=== PATIENT | female | born 1970 | race Two or more races ===

== ENCOUNTER 2020-12-03 10:36 | Emergency (ER) | payer MEDICAID ==
[~2020-12-03] VITALS: Ht 149.9 cm; Wt 62.1 kg
[2020-12-03] MEDS ORDERED: PROM118S5 PO (11:02)
--- NOTE | 2020-12-03 11:09 | NUR ---
Patient discharged to home in stable condition with brisk steady gait. Written and verbal after care instructions given to patient. Patient verbalizes understanding & compliance of instructions. Stressed follow up with primary doctor or return to ER for worsening s/s.
== END 2020-12-03 11:10 | disposition home or self-care (01) ==
LOC: ER 10:36
DX: R05 Cough (principal); J45.909 Unspecified asthma, uncomplicated; Z88.6 Allergy status to analgesic agent; Z88.5 Allergy status to narcotic agent
CPT/HCPCS: 71045; A4663

== ENCOUNTER 2021-01-23 17:29 | Emergency (ER) | payer MEDICAID, OTHER ==
[~2021-01-23] VITALS: Ht 149.9 cm; Wt 65.8 kg
[~2021-01-23 17:29] MED LIST: PROM118S5 PO
[2021-01-23] MEDS ORDERED: HYDR-3980 PO (17:57)
--- NOTE | 2021-01-23 18:12 | NUR ---
Patient discharged to home in stable condition. Written and verbal after care instructions given. Patient verbalizes understanding of instructions. Stressed follow up or return to ER for worsening s/s.
== END 2021-01-23 18:14 | disposition home or self-care (01) ==
LOC: ER 17:29
DX: S09.90XA Unspecified injury of head, initial encounter (principal); W20.8XXA Other cause of strike by thrown, projected or falling object, initial encounter; Y93.89 Activity, other specified; Y92.512 Supermarket, store or market as the place of occurrence of the external cause; Y99.0 Civilian activity done for income or pay; R42 Dizziness and giddiness; M54.2 Cervicalgia; J45.909 Unspecified asthma, uncomplicated; Z88.6 Allergy status to analgesic agent; Z88.5 Allergy status to narcotic agent
CPT/HCPCS: A4663

== ENCOUNTER 2021-12-06 01:44 | Emergency (ER) | payer SELFPAY ==
[~2021-12-06 01:44] MED LIST changes: +HYDR-3980 PO
--- NOTE | 2021-12-06 01:49 | NUR ---
Patient was called to be triaged but was not present in the waiting room or outside of ER. distribution clerk stated "Patient left ER stating I will see my PMD in the AM instead."
--- NOTE | 2021-12-06 02:02 | NUR ---
Patient was not triaged or seen by ERMD.
== END 2021-12-06 02:04 | disposition left against medical advice (07) ==
LOC: ER 01:46
DX: Z53.21 Procedure and treatment not carried out due to patient leaving prior to being seen by health care provider (principal)